=== PATIENT | male | born 1975 | race Caucasian/White ===

== ENCOUNTER 2020-11-24 19:39 | Emergency (ER) | payer MEDICAID, SELFPAY ==
[2020-11-24] VITALS (35 sets, daily range): BP systolic 119–140; BP diastolic 69–124; PULSE 49–85; RESP 11–25; TEMP 37.1–37.8; O2SAT 96–100
--- NOTE | 2020-11-24 19:45 | RT.EKG_ITS ---
APPROVED REPORT Exam: Resting ECG Patient Location: E HR:78 bpm ECG Measurements Heart Rate 78 AXIS MI 165 P 100 QRSd 87 QRS 118 QT 370 T 114 QTc 422 Conclusion Right and left arm electrode reversal, interpretation assumes no reversal Sinus rhythm...normal P axis, V-rate 60- 99 Probable lateral infarct, old...Q>35mS, abnormal ST-T, V5-6 I aVL Abnrm T, consider ischemia, anterolateral lds...T <-0.20mV, I aVL V2-V6 No lead reversal confirmed by nurse. Right [place] No STEMI
--- NOTE | 2020-11-24 19:50 | NUR.NOTE ---
Nursing Note: Patient reports daily CBD gummies, no other medications.
[2020-11-24 20:02] LABS: Absolute Basophil Count 0.03 10^3/uL (0.0-0.2); Absolute Eosinophil Count 0.12 10^3/uL (0.0-0.7); Absolute Lymphocyte Count 1.72 10^3/uL (1.2-3.4); Absolute Monocyte Count 0.43 10^3/uL (0.1-0.8); Absolute Neutrophil Count 3.46 10^3/uL (1.2-6.7); Basophils % 0.5; Eosinophils % 2.1; HCT 41.8 % (40.0-50.0); HGB 14.4 g/dL (13.5-17.5); Lymphocytes % 29.9; MCH 31.6 pg (27.0-33.0); MCHC 34.4 % (32.0-36.0); MCV 91.9 fL (80-95); MPV 9.5 fL (8.0-11.0); Monocytes % 7.5; Nucleated RBC 0 %; Platelet Count 247 10^3/uL (130-400); RBC 4.55 10^6/uL (4.36-5.78); RDW 11.1 % (11.8-14.1); RDW-SD 37.7 fL; WBC 5.76 10^3/uL (4.4-10.8)
[2020-11-24 20:26] LABS: ALT 30 U/L (16-63); AST 20 U/L (15-37); Albumin 4.4 g/dL (3.4-5.0); Alkaline Phosphatase 42 U/L (46-116); Anion Gap 7.2 mmol/L (3-11); BUN 18 mg/dL (7-18); Bilirubin, Total 0.4 mg/dL (0.2-1.0); CO2 28.8 mmol/L (21.0-32.0); CREATININE 0.97 mg/dL (0.70-1.30); Chloride 104 mmol/L (98-107); Glucose 85 mg/dL (74-106); Magnesium 1.9 mg/dL (1.8-2.4); Potassium 3.6 mmol/L (3.5-5.1); Sodium 140 mmol/L (136-145); TSH 1.86 uIU/mL (0.36-3.74); Total Protein 7.7 g/dL (6.4-8.2)
--- NOTE | 2020-11-24 20:36 | ED.GENADUL_ITS ---
Discharge Plan Disposition Patient Disposition: HOME Condition: Good Discharge Details Clinical Impression: Heart palpitations, Chest tightness Primary Care Provider: Rose Gongora ED Provider: Ian Long Home Meds and New Rx's Prescriptions: No Action No Known Home Meds RF: 0 Discharge Instructions Instructions: Chest Pain (ED), Heart Palpitations (ED) Additional Instructions: Work up tonight in ED looks ok. Holter monitor ordered. Will need follow up with PCP this coming week. Avoid stimulants like caffeine. Return to ED for syncope, persistent/prolonged palpitations, new/worse chest pain, shortness of breath. Referrals: Rose Gongora [Primary Care Provider] - Discharge Data Discharge Date/Time-TO BE ENTERED AT DEPARTURE: 11/25/20 00:15 Medical Decision Making <HELIO Benton - Last Filed: 11/25/20 08:06> 45-year-old gentleman presents with palpitations, heart racing, chest pressure- tightness intermittently for the past couple of weeks. He does admit to increased anxiety and stress. Denies cardiac or pulmonary disease. He is asymptomatic currently. Currently he is anxious but appears well, nontoxic. Heart rate on the geographic information scientist appears to be normal sinus rhythm, ventricular rate in the 80s. Respirations 16. Blood pressure 135/82. O2 sat 100% on room air. Initial temperature was documented to be 37.8, he has no infectious symptoms whatsoever, repeat temperature was 37.1. Differential includes but not excluded to PVC, A. fib, arrhythmia, atypical ACS, thyroid disease, PE, anxiety, anemia, electrolyte abnormality, etc. Will obtain IV access, perform cardiac work-up including D-dimer, and will discuss with respiratory setting up a 48- hour Holter monitor. I feel as though this is a long enough length of time given he reports symptoms every 1 or 2 days. Initial laboratory values reveal a white blood cell count of 5.76 hemoglobin 14.4 hematocrit 41.8 platelet count 247. Electrolytes are unremarkable. Creatinine 0.97 with a GFR greater than 60. Initial troponin was less than 0.05. TSH 1.86. Urine tox screen negative. D-dimer of 144. Upon reevaluation patient remains asymptomatic here in the ER. Respiratory is setting up the 48-hour Holter monitor. We discussed his work-up thus far and he is agreeable to awaiting his repeat troponin and EKG. Patient care signed out to Dr. Long at 1444. Working diagnosis currently with palpitations-arrhythmia. Patient does state that he watched a commercial regarding atrial fibrillation and is very concerned about that. I did explain to him that since he has been here there has been no signs of atrial fibrillation however the Holter monitor will likely give us more information. Plan is for repeat 3-hour troponin and EKG. Holter monitor already set up. If negative discharge home with outpatient primary care follow-up within the week, encouraged to return to the ER for new or worsening symptoms. Imaging Data Radiologic Study: Attestation: I personally reviewed and interpreted this imaging study as follows: Imaging: X-Ray My impression: Chest x-ray read by me in the ER as negative, awaiting official report from radiology. Lab Data Lab results reviewed: Yes I reviewed the patient's lab results. Lab results narrative: Laboratory Tests Range/Units 11/24/20 11/24/20 11/24/20 19:50 19:50 19:50 WBC (4.4-10.8) 10^3/uL 5.76 RBC (4.36-5.78) 10^6/uL 4.55 Hgb (13.5-17.5) g/dL 14.4 Hct (40.0-50.0) % 41.8 MCV (80-95) fL 91.9 MCH (27.0-33.0) pg 31.6 MCHC (32.0-36.0) % 34.4 RDW (11.8-14.1) % 11.1 L Plt Count (130-400) 10^3/uL 247 MPV (8.0-11.0) fL 9.5 Immature Gran % 0.0 Neutrophils % 60.0 Lymphocytes % 29.9 Monocytes % 7.5 Eosinophils % 2.1 Basophils % 0.5 Nucleated RBC % % 0 Absolute Neutrophils (1.2-6.7) 10^3/uL 3.46 Absolute Lymphocytes (1.2-3.4) 10^3/uL 1.72 Absolute Monocytes (0.1-0.8) 10^3/uL 0.43 Absolute Eosinophils (0.0-0.7) 10^3/uL 0.12 Absolute Basophils (0.0-0.2) 10^3/uL 0.03 D-Dimer (<500) ng/mlFEU 144 Sodium (136-145) mmol/L 140 Potassium (3.5-5.1) mmol/L 3.6 Chloride (98-107) mmol/L 104 Carbon Dioxide (21.0-32.0) mmol/L 28.8 Anion Gap (3-11) mmol/L 7.2 BUN (7-18) mg/dL 18 Creatinine (0.70-1.30) mg/dL 0.97 Estimated GFR/1.73 m2 (mL/min/1.73m2) >= 60.00 Glucose (74-106) mg/dL 85 Calcium (8.5-10.1) mg/dL 9.0 Magnesium (1.8-2.4) mg/dL 1.9 Total Bilirubin (0.2-1.0) mg/dL 0.4 AST (15-37) U/L 20 ALT (16-63) U/L 30 Alkaline Phosphatase (46-116) U/L 42 L Troponin I (<0.06) ng/mL < 0.05 Total Protein (6.4-8.2) g/dL 7.7 Albumin (3.4-5.0) g/dL 4.4 TSH (0.36-3.74) uIU/mL 1.86 Urine Opiates Screen (Negative) Urine Methadone Screen (Negative) Ur Barbiturates Screen (Negative) Ur Tricyclics Screen (Negative) Ur Amphetamines Screen (Negative) U Benzodiazepines Scrn (Negative) Urine Cocaine Screen (Negative) Ur THC Screen (Negative) Range/Units 11/24/ 20:35 WBC (4.4-10.8) 10^3/uL RBC (4.36-5.78) 10^6/uL Hgb (13.5-17.5) g/dL Hct (40.0-50.0) % MCV (80-95) fL MCH (27.0-33.0) pg MCHC (32.0-36.0) % RDW (11.8-14.1) % Plt Count (130-400) 10^3/uL MPV (8.0-11.0) fL Immature Gran % Neutrophils % Lymphocytes % Monocytes % Eosinophils % Basophils % Nucleated RBC % % Absolute Neutrophils (1.2-6.7) 10^3/uL Absolute Lymphocytes (1.2-3.4) 10^3/uL Absolute Monocytes (0.1-0.8) 10^3/uL Absolute Eosinophils (0.0-0.7) 10^3/uL Absolute Basophils (0.0-0.2) 10^3/uL D-Dimer (<500) ng/mlFEU Sodium (136-145) mmol/L Potassium (3.5-5.1) mmol/L Chloride (98-107) mmol/L Carbon Dioxide (21.0-32.0) mmol/L Anion Gap (3-11) mmol/L BUN (7-18) mg/dL Creatinine (0.70-1.30) mg/dL Estimated GFR/1.73 m2 (mL/min/1.73m2) Glucose (74-106) mg/dL Calcium (8.5-10.1) mg/dL Magnesium (1.8-2.4) mg/dL Total Bilirubin (0.2-1.0) mg/dL AST (15-37) U/L ALT (16-63) U/L Alkaline Phosphatase (46-116) U/L Troponin I (<0.06) ng/mL Total Protein (6.4-8.2) g/dL Albumin (3.4-5.0) g/dL TSH (0.36-3.74) uIU/mL Urine Opiates Screen (Negative) Negative Urine Methadone Screen (Negative) Negative Ur Barbiturates Screen (Negative) Negative Ur Tricyclics Screen (Negative) Negative Ur Amphetamines Screen (Negative) Negative U Benzodiazepines Scrn (Negative) Negative Urine Cocaine Screen (Negative) Negative Ur THC Screen (Negative) Negative ECG Data Attestation: I personally reviewed and interpreted this ECG (s) as follows: Interpretation: Please see official report by Dr. Long. Also please note that the machine read as possible reversal of the right and left arm electrode. I clarified with the RN who performed EKG and she verifies that it was done correctly. Sinus rhythm, ventricular rate of 78. No STEMI. <Ian Long MD - Last Filed: 11/24/20 23:52> Patient signed out to me pending repeat EKG and troponin. Had presented with intermittent palpitations and chest pressure but asymptomatic here. See HELIO Prado's note for presentation and work up. Holter being set up with respiratory. 1st EKG with right axis and question lead reversal but nurse confirms she double checked. Thought maybe arm leads weren't out far enough maybe due to placement related to patient's chest hair. Labs all look fine. Repeat EKG is normal and 2nd trop is negative. Home. Holter monitor ordered. Follow up with PCP next week. Return to ED for syncope, new/worse chest pain/tightness, prolonged/sustained palpitations, shortness of breath. Lab Data Lab results reviewed: Yes I reviewed the patient's lab results. ECG Data Attestation: I personally reviewed and interpreted this ECG (s) as follows: Interpretation: see EKG HPI <HELIO Benton - Last Filed: 11/25/20 08:06> General Mode of arrival: ambulatory . Date/Time Provider Initiated Documentation: 11/24/20 19:54 . Limitations to Documentation: no limitations . Information obtained by: patient . HPI Narrative: 45-year-old gentleman who denies significant past medical history and is presenting to the ER tonight for palpitations that are associated with chest pressure-tightness. He tells me that he brought up the symptoms to his primary care provider approximately 2 years ago and has had occasional similar episodes ever since. He states that he was told it was likely a benign arrhythmia. Over the past 2 weeks he reports that his symptoms have worsened, increased in frequency, at least 1 time every 2 days. He reports feeling his heart racing, being irregular and fast, and even stopping and restarting. Sometimes when he gets these symptoms he also feels lightheaded and/or dizzy. Not like the room is spinning. When he becomes symptomatic he states that his anxiety worsens which then in turn makes the symptoms worse. He admits that his stress and anxiety is higher than usual given the pandemic and his isolation. Symptoms today began around 4:00 when he was at rest and lasted for a couple of hours; however, now here in the ER he is asymptomatic. He denies recent illness or trauma. He denies headache, visual changes, neck pain, cough, shortness of breath, abdominal pain, nausea, vomiting, numbness, tingling, weakness. He reports that the chest pressure and/or tightness across his entire chest and not located in one small area. He admits to using marijuana daily as well as typically having 2 or 3 alcoholic drinks every single night. He denies any other drug use. He denies any known cardiac disease, pulmonary disease, thyroid disease, etc. Related Data Home Medications Medication Instructions Recorded Confirmed Unknown [No Known Home Meds] 11/24/20 11/24/20 Allergies Allergy/AdvReac Type Severity Reaction Status Date / Time ssris Allergy Psychosis Uncoded 11/24/20 19:44 General Stated Complaint: Palpitatns JAVIER: 3 Review of Systems <HELIO Benton - Last Filed: 11/25/20 08:06> Constitutional Constitutional: Denies fatigue, Denies fever(s), Denies headache(s) and Denies weakness Eyes Eyes: Denies change in vision ENT Ears, Nose, Mouth, and Throat: Denies headache(s) and Denies neck pain Cardiovascular Cardiovascular: Reports chest pain, Reports rapid heart rate, Reports irregular heart rhythm, Denies leg edema, Reports palpitations and Denies dyspnea Respiratory Respiratory: Denies cough and Denies dyspnea Gastrointestinal Gastrointestinal: Denies abdominal pain, Denies nausea and Denies vomiting Genitourinary Genitourinary: Denies dysuria Musculoskeletal Musculoskeletal: Denies back pain, Denies neck pain, Denies numbness and Denies tingling Integumentary/Breasts Skin/Breast: Denies rash Neurologic Neurologic: Denies headache(s), Denies numbness, Denies tingling and Denies weakness Psychiatric Psychiatric: Reports anxiety Endocrine Endocrine: Denies fatigue and Reports palpitations PFSH <HELIO Benton - Last Filed: 11/25/20 08:06> Social History Smoking/Tobacco Use Status: Never Smoking risk assessment performed?: Yes Alcohol Intake: current Alcohol Intake frequency: 3 or more drinks per day Alcohol type: beer and wine Substance use type: marijuana Do you feel safe at home: Yes Do you feel safe in your relationship?: Yes Exam <HELIO Benton - Last Filed: 11/25/20 08:06> Const General: cooperative, healthy appearing, comfortable, no acute distress and anxious Orientation: alert, awake and oriented x3 HENMT Head: normal to inspection, normocephalic and atraumatic Eyes General: appearance normal, both eyes and all related structures Conjunctivae: conjunctivae normal Sclera: sclerae normal Neck Neck: normal visual inspection, full ROM, no meningeal signs, trachea midline, supple and nontender Resp Effort & Inspection: normal respiratory effort and able to speak in complete sentences Auscultation: clear to auscultation bilaterally Cardio Rate: regular rate Rhythm: regular rhythm GI Palpation: soft and nontender Auscultation: normal bowel sounds Back/Spine/Pelvis Back: No back tenderness Skin General skin exam: no rashes or lesions noted Neuro General: patient alert, patient awake, patient oriented x3, moves all extremities and no focal motor deficits Cognition: normal cognition Speech: speech normal Gait: normal gait Motor: muscle tone normal throughout Sensory Exam: no sensory deficits noted Extrem General: normal to inspection, full ROM, capillary refill normal, no pedal edema and no calf tenderness Psych Appearance: grossly normal Mental Status: mental status grossly normal Speech and Movement: speech and movement normal Mood: anxious mood Affect: anxious affect Attitude: cooperative Thought Process: normal Thought Content: normal Insight: fair Judgment: fair Course <HELIO Benton - Last Filed: 11/25/20 08:06> Vital Signs Vital signs: Vital Signs Temperature 37.8 C H 11/24/20 19:42 Pulse 85 11/24/20 19:42 Respiratory Rate 16 11/24/20 19:42 Blood Pressure 135/82 11/24/20 19:42 Pulse Oximetry 100 11/24/20 19:42 Temperature 37.8 C H 11/24/20 19:42 Temperature Source Skin 11/24/20 19:42 Pulse 85 11/24/20 19:42 Respiratory Rate 16 11/24/20 19:42 Respiratory Effort Non-Labored 11/24/20 19:47 Blood Pressure 135/82 11/24/20 19:42 Blood Pressure Position Supine 11/24/20 19:42 Pulse Oximetry 100 11/24/20 19:42 Oxygen Delivery Method Room Air 11/24/20 19:42 Oxygen Flow Rate 0 11/24/20 19:42 Pain Level 0 11/24/20 19:42 Lab/Test Results Lab/Test Results: Laboratory Tests Range/Units 11/24/20 19:50 WBC (4.4-10.8) 10^3/uL 5.76 RBC (4.36-5.78) 10^6/uL 4.55 Hgb (13.5-17.5) g/dL 14.4 Hct (40.0-50.0) % 41.8 MCV (80-95) fL 91.9 MCH (27.0-33.0) pg 31.6 MCHC (32.0-36.0) % 34.4 RDW (11.8-14.1) % 11.1 L Plt Count (130-400) 10^3/uL 247 MPV (8.0-11.0) fL 9.5 Immature Gran % 0.0 Neutrophils % 60.0 Lymphocytes % 29.9 Monocytes % 7.5 Eosinophils % 2.1 Basophils % 0.5 Nucleated RBC % % 0 Absolute Neutrophils (1.2-6.7) 10^3/uL 3.46 Absolute Lymphocytes (1.2-3.4) 10^3/uL 1.72 Absolute Monocytes (0.1-0.8) 10^3/uL 0.43 Absolute Eosinophils (0.0-0.7) 10^3/uL 0.12 Absolute Basophils (0.0-0.2) 10^3/uL 0.03
[2020-11-24 20:39] LABS: Troponin I < 0.05 ng/mL (<0.06)
[2020-11-24 21:00] LABS: *AMPHETAMINES SCREEN URINE Negative (Negative); *BARBITURATES SCREEN URINE Negative (Negative); *BENZODIAZEPINES SCREEN URINE Negative (Negative); Cannabinoids THC Negative (Negative); Cocaine Screen,Urine Negative (Negative); METHADONE URINE SCREEN Negative (Negative); OPIATES URINE SCREEN Negative (Negative)
[2020-11-24 21:01] LABS: Tricyclic Antidepressants Negative (Negative)
[2020-11-24 21:06] LABS: D-Dimer 144 ng/mlFEU (<500)
--- NOTE | 2020-11-24 21:13 | DI.RAD_ITS ---
EXAM: XR CHEST 2V PA LATERAL CLINICAL HISTORY: Palpitations TECHNIQUE: 2D digital imaging was performed. COMPARISON: No exams were available for comparison FINDINGS: MEDIASTINUM: Normal. HEART: Normal. PULMONARY VASCULATURE: Normal. LUNGS: Mild biapical scarring, otherwise clear. PLEURAL SPACE: No pleural effusion or pneumothorax. BONE:Normal. IMPRESSION: No acute pulmonary findings. DATA REPOSITORY: RADIATION DOSE DELIVERED:
--- NOTE | 2020-11-24 21:57 | DI.VRAD_ITS ---
PROCEDURE INFORMATION: Exam: XR Chest, 2 Views Exam date and time: 11/24/2020 9:19 PM Age: 45 years old Clinical indication: Other: Palpitations TECHNIQUE: Imaging protocol: XR of the chest Views: 2 views. COMPARISON: No relevant prior studies available. FINDINGS: Lungs: No focal consolidation. Mild biapical thickening. Pleural space: No pleural effusion. No pneumothorax. Heart/Mediastinum: Unremarkable. No cardiomegaly. Bones/joints: Unremarkable. IMPRESSION: No acute cardiopulmonary disease. Dictated and Authenticated by: Zach Mazariegos MD. Ordering:JALEN Plata MD
--- NOTE | 2020-11-24 22:45 | RT.EKG_ITS ---
APPROVED REPORT Exam: Resting ECG Patient Location: E HR:51 bpm ECG Measurements Heart Rate 51 AXIS [place] 179 P 73 QRSd 93 QRS 63 QT 430 T 75 QTc 397 Conclusion Sinus bradycardia...rate< [address] [place] [address] segments. No STEMI Compared to prior EKG performed on 11/24/2020 at 19:47. [place] now normal.
[2020-11-24 23:27] LABS: Troponin I < 0.05 ng/mL (<0.06)
== END 2020-11-25 00:15 | disposition home or self-care (01) ==
PROVIDERS: Physician Assistant; Emergency Provider Emergency Medicine; PCP Family Medicine
DX: R00.2 Palpitations (principal); R07.89 Other chest pain
CPT/HCPCS: 80053; 80307; 93005; 99284; 71046; 83735; 84443; 84484; 85025; 85379; 93010; 93225

== ENCOUNTER 2020-11-24 20:45 | Outpatient (RCR) | payer MEDICAID, SELFPAY ==
--- NOTE | 2020-11-24 20:45 | HOLTER_ITS ---
APPROVED REPORT Exam Type: HOLTER MONITOR APPLICATION Patient Location: O Conclusion This was a 48-hour Holter monitor reportedly ordered for symptoms of palpitations The rhythm throughout was sinus average heart rate was 68 bpm. Minimum was 40 and maximum 146 There were very rare atrial and ventricular ectopic beats There was no atrial fibrillation, no pauses greater than 3 seconds, no high-grade AV block No patient symptoms were reported
== END 2020-11-30 23:59 | disposition home or self-care (01) ==
LOC: RT 20:45
PROVIDERS: PCP Family Medicine; Visit Provider Physician Assistant
DX: R00.2 Palpitations (principal)
CPT/HCPCS: 93225; 93226

== ENCOUNTER 2020-11-28 19:03 | Outpatient (REF) | payer MEDICAID, SELFPAY ==
[2020-11-30 04:00] LABS: COVID-19 RT-PCR UVMMC Result Negative (Negative)
== END 2020-11-28 19:23 ==
LOC: NCHCN 19:03
PROVIDERS: PCP Family Medicine; Visit Provider Family Medicine
DX: Z20.828 Contact with and (suspected) exposure to other viral communicable diseases (principal)
CPT/HCPCS: U0003

== ENCOUNTER 2020-12-05 16:34 | Emergency (ER) | payer MEDICAID, SELFPAY ==
[2020-12-05] VITALS (24 sets, daily range): BP systolic 92–142; BP diastolic 68–84; PULSE 51–83; RESP 12–25; TEMP 37.2; O2SAT 97–100
--- NOTE | 2020-12-05 16:30 | RT.EKG_ITS ---
APPROVED REPORT Exam: Resting ECG Patient Location: E HR:62 bpm ECG Measurements Heart Rate 62 AXIS [place] 167 P 73 QRSd 91 QRS 59 QT 402 T 70 QTc 409 Conclusion Sinus rhythm...normal P axis, V-rate 60- 99 I have reviewed and interpreted ECG and agree with software generated interpretation.
--- NOTE | 2020-12-05 17:00 | W.ED.GENAD ---
Discharge Plan Disposition Patient Disposition: HOME Condition: Stable Discharge Details Clinical Impression: Heart palpitations Primary Care Provider: Rose Gongora ED Provider: Jelly Dallas Home Meds and New Rx's Prescriptions: No Action No Known Home Meds RF: 0 Discharge Instructions Instructions: Heart Palpitations (ED) Additional Instructions: Please care for the surveillance monitor as discussed by respiratory therapy. This is mostly in place in the next 2 weeks. Please keep your upcoming appointment with your primary care. Please cut out the acidic based foods prior to bed. Please continue to track your symptoms including when they came on and what you had done prior. If you develop chest pain, shortness of breath or other new/worsening symptoms please seek care urgently once again. Referrals: Rose Gongora [Primary Care Provider] - Discharge Data Discharge Date/Time-TO BE ENTERED AT DEPARTURE: 12/05/20 19:12 Medical Decision Making Patient is a pleasant 45-year-old gentleman presenting today for recurrence of palpitations. He was seen here 11 days ago with the same. At that time, he reported palpitations at night. He states that he wore a Holter monitor for 2 days. He states that while having a Holter on he was completely asymptomatic. He states that he notices this more at night. States he notices it just when he is trying to go to sleep. He reports that he comes in today because he awoke last night with recurrence of symptoms. He states his palpitations lasted a longer period time and then he states his heart rate was slow, in the 40s. States that he felt a pause for 1 to 2 seconds which was very alarming to him. He states that when he was having the symptoms he also experienced unusual sensation in his hands and lightheadedness. Also describes shooting pain that went through his right great toe. Denies any chest pain. States that he did feel slightly short of breath with this. Denies any nausea or vomiting. No change in his bowel or bladder habits. States that he has been eating a large amount of canned goods which have been vinegar-based tomato based at night during onset of symptoms. Reports that he was taking his own pulse last night and noted it to be in the 40s. On exam, patient appears nontoxic. Normal cardiac exam at this time. No lower extremity edema, no calf tenderness. Patien does appear anxious. I reviewed the patient's chart, last time patient was here, his heart rate was in the 40s and 50s. I did try to reassure the patient that if he was at that level while awake and alert, likely he is in the 40s and he states the night. This would therefore require at least 1 second in between each beat which was his major concern today. His blood suspicion for ACS. His history and exam is not consistent with pulmonary embolism. Patient may have had a dysrhythmia. However, as noted previously, this also may be associated with low resting heart rate. Plan for repeat labs and EKG. As he had TSH and chest x-ray recently, I do not feel that these need to be repeated today. Labs reviewed. No leukocytosis. Stable H&H. No electrolyte abnormalities. Troponin is within normal limits. Patient has symptoms 12 hours ago, I do not feel that repeating a troponin is warranted at this point. Discussed these findings with the patient. We discussed the treatment options at length. He was asymptomatic when he was Holter monitor last time. I do feel that he would likely benefit from a longer period of monitoring. He denies I discussed inpatient versus outpatient monitoring as he seems quite concerned with this. However, after the reassuring exam today, he would prefer discharge home. Return precautions were given. I did advise close follow-up with primary care. He reports he is supposed to have further blood work this week. 14-day surveillance monitor was placed by respiratory therapy. All his questions and concerns were addressed and he is in agreement with this plan. HPI General Mode of arrival: ambulatory. Date/Time Provider Initiated Documentation: 12/05/20 16:54. Limitations to Documentation: no limitations. Information obtained by: patient and RN notes reviewed. History of Present Illness 45 year old M presents to the emergency department with the chief complaint of Palpitations, described as similar to prior episodes, with intensity rated at 1 (Denies any pain). and is localized to the chest. Patient reports no radiation. Patient started experiencing this hour(s) (Occurred last night) and it has been now resolved. No relieving factors improve symptom(s), Other factors that worsen symptoms (Laying supine) . Patient notes no other symptoms.. Patient did receive the following treatments prior to arrival, none Related Data Home Medications Medication Instructions Recorded Confirmed Unknown [No Known Home Meds] 11/24/20 12/05/20 Allergies Allergy/AdvReac Type Severity Reaction Status Date / Time ssris Allergy Psychosis Uncoded 12/05/20 17:07 General JAVIER: 3 Review of Systems Constitutional Constitutional: Reports as per HPI, Denies chills, Denies fever(s), Denies headache(s), Denies lethargy and Denies poor appetite Eyes Eyes: Denies change in vision ENT Ears, Nose, Mouth, and Throat: Denies dizziness and Denies headache(s) Cardiovascular Cardiovascular: Reports as per HPI, Denies chest pain, Denies chest pain at rest, Denies chest pain with activity, Denies diaphoresis, Denies syncope, Denies edema, Reports lightheadedness, Denies radiating jaw, neck or arm pain, Reports palpitations, Denies dyspnea, Denies dyspnea on exertion, Denies paroxysmal nocturnal dyspnea and Reports slow heart rate (at night when in bed) Respiratory Respiratory: Reports as per HPI, Denies chest congestion, Denies cough, Denies pain on inspiration, Denies pain with cough, Denies dyspnea, Denies dyspnea on exertion and Denies wheezing Gastrointestinal Gastrointestinal: Reports as per HPI, Denies abdominal pain, Denies diarrhea, Denies nausea and Denies vomiting Genitourinary Genitourinary: Denies system reviewed and no additional complaints, except as documented (denies change in urinary habits) Musculoskeletal Musculoskeletal: Reports as per HPI and Denies back pain Integumentary/Breasts Skin/Breast: Reports as per HPI and Denies rash Neurologic Neurologic: Reports as per HPI, Denies dizziness, Denies syncope and Denies headache(s) Endocrine Endocrine: Reports palpitations Allergic/Immunologic Allergic/Immunologic: Denies wheezing [facility] Social History Smoking/Tobacco Use Status: Never Smoking risk assessment performed?: Yes Alcohol Intake: current Alcohol Intake frequency: 3 or more drinks per day Alcohol type: beer and wine Drug use: Daily Substance use type: marijuana Do you feel safe at home: Yes Do you feel safe in your relationship?: Yes Exam Const General: cooperative, healthy appearing, comfortable, no acute distress, well developed and anxious Nutritional Appearance: average body habitus and well nourished Orientation: alert, awake and oriented x3 HENMT Head: normal to inspection Ears: hearing grossly normal bilaterally Mouth: moist mucous membranes Chest Chest: normal inspection of the chest, normal palpation of entire chest wall and no crepitus Resp Effort & Inspection: normal respiratory effort, able to speak in complete sentences and no respiratory distress Auscultation: clear to auscultation bilaterally, no rales, no rhonchi and no wheezes Cardio Rate: regular rate Rhythm: regular rhythm Heart Sounds: S1 normal and S2 normal GI Inspection: normal to inspection, no edema and non-distended Palpation: soft, no hepatosplenomegaly, not firm, no guarding, not rigid and nontender Auscultation: normal bowel sounds Skin General skin exam: no rashes or lesions noted Trauma: no lacerations or abrasions Neuro General: patient alert, patient awake and patient oriented x3 Cognition: normal cognition Speech: speech normal Gait: normal gait Extrem General: normal to inspection, capillary refill normal, no pedal edema, no calf tenderness and normal gait Psych Appearance: grossly normal and well kempt Mental Status: mental status grossly normal Speech and Movement: speech and movement normal
[2020-12-05 17:03] LABS: Abs Immature Grans 0.01 10^3/uL (0.0-0.06); Absolute Basophil Count 0.02 10^3/uL (0.0-0.2); Absolute Eosinophil Count 0.14 10^3/uL (0.0-0.7); Absolute Lymphocyte Count 1.45 10^3/uL (1.2-3.4); Absolute Monocyte Count 0.41 10^3/uL (0.1-0.8); Absolute Neutrophil Count 2.08 10^3/uL (1.2-6.7); Basophils % 0.5; Eosinophils % 3.4; HCT 41.5 % (40.0-50.0); HGB 14.1 g/dL (13.5-17.5); Immature Grans % 0.2; Lymphocytes % 35.3; MCH 31.5 pg (27.0-33.0); MCV 92.8 fL (80-95); Neutrophils % 50.6; Nucleated RBC 0 %; Platelet Count 236 10^3/uL (130-400); RBC 4.47 10^6/uL (4.36-5.78); RDW 11.2 % (11.8-14.1); RDW-SD 38.1 fL; WBC 4.11 10^3/uL (4.4-10.8)
[2020-12-05 17:24] LABS: ALT 28 U/L (16-63); AST 20 U/L (15-37); Albumin 4.1 g/dL (3.4-5.0); Alkaline Phosphatase 46 U/L (46-116); Anion Gap 3.8 mmol/L (3-11); BUN 8 mg/dL (7-18); Bilirubin, Total 0.4 mg/dL (0.2-1.0); CO2 32.2 mmol/L (21.0-32.0); CREATININE 0.87 mg/dL (0.70-1.30); Calcium 9.2 mg/dL (8.5-10.1); Chloride 104 mmol/L (98-107); Glucose 87 mg/dL (74-106); Potassium 3.8 mmol/L (3.5-5.1); Sodium 140 mmol/L (136-145); Total Protein 7.3 g/dL (6.4-8.2)
[2020-12-05 17:25] LABS: Troponin I < 0.05 ng/mL (<0.06)
--- NOTE | 2020-12-15 08:46 | ZIOP_ITS ---
Date of service: 12/15/20 Time of Service: 08:47 14 Day Rn Lactation Consultant Referring Provider:: Rose Zapata Indications:: Palpitations Note: This is a 14-day monitor ordered for palpitations. Recording lasted 7 days and 33 minutes. Rhythm throughout was sinus. Average heart rate was 63 bpm. Minimum was 40 and maximum 153 There were very rare atrial and ventricular ectopic beats There was no atrial fibrillation, no pauses greater than 3 seconds, no high- grade AV block Multiple patient symptoms were reported. These corresponded to sinus rhythm ranging from 55 to 75 bpm
== END 2020-12-05 19:12 | disposition home or self-care (01) ==
PROVIDERS: Emergency Provider Physician Assistant; PCP Family Medicine
DX: R00.2 Palpitations (principal); R42 Dizziness and giddiness; R06.02 Shortness of breath
CPT/HCPCS: 36415; 80053; 93005; 93246; 99284; 83735; 84484; 85025; 93010

== ENCOUNTER 2020-12-07 11:36 | Outpatient (REF) | payer MEDICAID, SELFPAY ==
[2020-12-07 13:50] LABS: Absolute Basophil Count 0.03 10^3/uL (0.0-0.2); Absolute Eosinophil Count 0.18 10^3/uL (0.0-0.7); Absolute Lymphocyte Count 1.47 10^3/uL (1.2-3.4); Absolute Monocyte Count 0.48 10^3/uL (0.1-0.8); Absolute Neutrophil Count 2.18 10^3/uL (1.2-6.7); Basophils % 0.7; Eosinophils % 4.1; HCT 44.6 % (40.0-50.0); Lymphocytes % 33.9; MCH 31.5 pg (27.0-33.0); MCHC 33.6 % (32.0-36.0); MCV 93.7 fL (80-95); MPV 10.3 fL (8.0-11.0); Monocytes % 11.1; Neutrophils % 50.2; Nucleated RBC 0 %; Platelet Count 259 10^3/uL (130-400); RBC 4.76 10^6/uL (4.36-5.78); RDW 11.7 % (11.8-14.1); RDW-SD 40.3 fL; WBC 4.34 10^3/uL (4.4-10.8)
[2020-12-07 14:45] LABS: ALT 30 U/L (16-63); AST 20 U/L (15-37); Albumin 4.2 g/dL (3.4-5.0); Alkaline Phosphatase 43 U/L (46-116); Anion Gap 5.3 mmol/L (3-11); BUN 16 mg/dL (7-18); Bilirubin, Total 0.4 mg/dL (0.2-1.0); CO2 31.7 mmol/L (21.0-32.0); CREATININE 0.89 mg/dL (0.70-1.30); Calcium 9.2 mg/dL (8.5-10.1); Calculated LDL 133 mg/dL (<100); Chloride 106 mmol/L (98-107); Cholesterol 239 mg/dL (<200); Glucose 100 mg/dL (74-106); HDL Cholesterol 95 mg/dL (40-60); Potassium 4.7 mmol/L (3.5-5.1); Sodium 143 mmol/L (136-145); TSH 2.69 uIU/mL (0.36-3.74); Total Protein 7.3 g/dL (6.4-8.2); Triglyceride 56 mg/dL (<150)
[2020-12-07 15:05] LABS: FREE T4 0.86 ng/dL (0.76-1.46)
== END 2020-12-07 11:56 ==
LOC: NCHCN 11:36
PROVIDERS: PCP Family Medicine; Visit Provider Family Medicine
DX: I49.9 Cardiac arrhythmia, unspecified (principal)
CPT/HCPCS: 80053; 80061; 84439; 84443; 85025

== ENCOUNTER 2020-12-19 19:24 | Emergency (ER) | payer MEDICAID, SELFPAY ==
[2020-12-19 19:28] VITALS: BP 143/85; PULSE 73; RESP 16; TEMP 37.2; O2SAT 97
--- NOTE | 2020-12-19 20:04 | W.ED.GENAD ---
Discharge Plan Disposition Patient Disposition: HOME Condition: Good Discharge Details Clinical Impression: Pain in right testicle, Pain in penis Primary Care Provider: Rose Gongora ED Provider: Jelly Dallas Home Meds and New Rx's Prescriptions: No Action No Known Home Meds RF: 0 Discharge Instructions Instructions: Testicle Pain (ED) Additional Instructions: As we discussed, your exam is most consistent with contusion. Please continue to ice the area. Please encourage scrotal elevation. If you develop any swelling, increased pain, difficulty with urination, difficulty with erection or other new/worsening symptoms please seek care urgently once again. Otherwise, please follow-up with your primary care in 1 week for reevaluation. You may use Tylenol and/or ibuprofen as needed for discomfort. Referrals: Rose Gongora [Primary Care Provider] - Medical Decision Making Patient is a 45-year-old male presenting today with chief complaint of testicular and penile pain. Patient reports a few hours prior to arrival he was working on his physical therapy. He was using a physical therapy exams that have been bolted to the wall. While performing his exercises, he detached in the wall and snapped him in his genitals. He states that he quickly noted swelling and was concerned that his penis was deviated to left. He contacted urgent care with plan to be evaluated there. They were concerned about potential penile fracture and advised to come to the ED for evaluation. Patient reports that she has been icing the area and notes that the swelling has gone down and his penis is no longer bent. He states that he also had right testicular discomfort which is also been subsiding. This pain did radiate up into his abdomen. No nausea or vomiting. Denies other injury the time of the incident. Patient has urinated since being here and denies any pain with urination. On exam, patient appears very anxious. He seems quite angry about being here and is swearing and upset throughout the course of the visit. Exam of his genitals are reassuring. I do not note any abnormality of his penis, no swelling or ecchymosis. Normal testicular lie. No fracture of penis or deformity of his testicle is palpated. No pain with palpation. Patient did not have any gross blood in his urine. Patient and I discussed treatment options. I do not see any evidence to suggest a penile fracture. He did not have an erection at this time the injury took place. Do not see any evidence to suggest severe testicular injury. Again, his pain had subsided the time of my exam. We did discuss imaging but I do not feel that this is warranted at this time. I encouraged elevation of the scrotum. Advised he may continue icing. He has been seen by urology historically for an enlarged prostate. I did offer referral once again to urology as it sounds that he was lost to prostate. Patient declines this referral. Encouraged follow-up with primary care. We did discuss return precautions including swelling, difficulty getting erection, difficulty with urination or increased pain. All of his questions and concerns were addressed and he is in agreement this plan. HPI General Mode of arrival: ambulatory. Date/Time Provider Initiated Documentation: 12/19/20 20:03. Limitations to Documentation: no limitations. Information obtained by: patient, RN/MD (contacted by [facility] from urgent care prior to arrival) and RN notes reviewed. History of Present Illness 45 year old M presents to the emergency department with the chief complaint of penile and testicular pain, described as mild (reports pain is improved at this time), Quality is described as aching, and is localized to the genitals. Patient abdomen (had radiated into the right side of his abdomen). Patient started experiencing this hour(s) (2) and it has been now resolved. Cold therapy improves symptom(s), and Rest improves symptom(s), No exacerbating factors reported . Patient notes no other symptoms.. Patient did receive the following treatments prior to arrival, cold therapy Related Data Home Medications Medication Instructions Recorded Confirmed Unknown [No Known Home Meds] 11/24/20 12/19/20 Allergies Allergy/AdvReac Type Severity Reaction Status Date / Time ssris Allergy Psychosis Uncoded 12/19/20 19:31 General Stated Complaint: Male Reproductive Problem JAVIER: 3 Review of Systems Constitutional Constitutional: Reports as per HPI, Denies chills, Denies fatigue, Denies fever(s) and Denies headache(s) ENT Ears, Nose, Mouth, and Throat: Denies headache(s) Cardiovascular Cardiovascular: Reports as per HPI, Denies chest pain and Denies dyspnea Respiratory Respiratory: Reports as per HPI, Denies cough and Denies dyspnea Gastrointestinal Gastrointestinal: Reports as per HPI Genitourinary Genitourinary: Reports as per HPI Musculoskeletal Musculoskeletal: Reports as per HPI and Denies back pain Integumentary/Breasts Skin/Breast: Reports as per HPI and Denies rash Neurologic Neurologic: Reports as per HPI and Denies headache(s) Endocrine Endocrine: Denies fatigue [facility] Social History Smoking/Tobacco Use Status: Never Smoking risk assessment performed?: Yes Alcohol Intake: current Alcohol Intake frequency: 3 or more drinks per day Alcohol type: beer and wine Drug use: Daily Substance use type: marijuana Current gender identity: male Do you feel safe at home: Yes Do you feel safe in your relationship?: Yes Exam Const General: cooperative, healthy appearing, comfortable, no acute distress, well developed and anxious Nutritional Appearance: average body habitus and well nourished Orientation: alert and awake HENMT Head: normal to inspection Mouth: moist mucous membranes Resp Effort & Inspection: normal respiratory effort and able to speak in complete sentences Cardio Rate: regular rate Rhythm: regular rhythm Male General Exam: Yes normal external exam, No ecchymosis, No edema, No erythema, No hernia, No inguinal lymphadenopathy, No lacerations, No lesions and No tenderness Penis: normal penis, no ecchymosis, not erythematous, no masses and no swelling Meatus: meatus normal and no meatla discharge Scrotum: scrotum normal, cremasteric reflex present, no ecchymosis, not edematous, not erythematous, no inguinal hernias, no masses and no scrotal swelling Testes: normal, testicular lie normal, no epidiymal tenderness, no masses and no testicular mass Back/Spine/Pelvis Back: no CVA tenderness Skin General skin exam: no rashes or lesions noted Trauma: no lacerations or abrasions Neuro General: patient alert and patient awake Cognition: normal cognition Speech: speech normal Gait: normal gait Psych Appearance: grossly normal and well kempt Mental Status: mental status grossly normal Speech and Movement: speech and movement normal Course Vital Signs Vital signs: Vital Signs Temperature 37.2 C 12/19/20 19:28 Pulse 73 12/19/20 19:28 Respiratory Rate 16 12/19/20 19:28 Blood Pressure 143/85 H 12/19/20 19:28 Pulse Oximetry 97 12/19/20 19:28 Temperature 37.2 C 12/19/20 19:28 Temperature Source Skin 12/19/20 19:28 Pulse 73 12/19/20 19:28 Respiratory Rate 16 12/19/20 19:28 Respiratory Effort Non-Labored 12/19/20 19:32 Blood Pressure 143/85 H 12/19/20 19:28 Blood Pressure Position Sitting 12/19/20 19:28 Pulse Oximetry 97 12/19/20 19:28 Oxygen Delivery Method Room Air 12/19/20 19:28 Oxygen Flow Rate 0 12/19/20 19:28 Pain Level 5 12/19/20 19:28
--- NOTE | 2020-12-19 20:54 | NUR.NOTE ---
Nursing Note: Patient refused nurse exam--see provider notes for detailed exam
== END 2020-12-19 20:40 | disposition home or self-care (01) ==
LOC: ER 20:40
PROVIDERS: Emergency Provider Physician Assistant; PCP Family Medicine
DX: N50.811 Right testicular pain (principal); N48.89 Other specified disorders of penis
CPT/HCPCS: 99282; 99283

== ENCOUNTER 2021-11-08 09:47 | Outpatient (REF) | payer MEDICAID, SELFPAY ==
[2021-11-09 11:55] LABS: Lyme Ab w Rflx to Lyme Confirm Negative (Negative)
[2021-11-12 18:48] LABS: Anaplasma phagocytophilum Negative (Negative); B. miyamotoi PCR Negative (Negative); Babesia divergens/MO-1 Negative (Negative); Babesia duncani Negative (Negative); Babesia microti Negative (Negative); Ehrlichia chaffeensis Negative (Negative); Ehrlichia ewingii/canis Negative (Negative); Ehrlichia muris eauclairensis Negative (Negative)
== END 2021-11-08 09:48 | disposition home or self-care (01) ==
LOC: NCHCN 09:47
PROVIDERS: PCP Family Medicine; Visit Provider Family Medicine
DX: M25.59 Pain in other specified joint (principal); G89.29 Other chronic pain
CPT/HCPCS: 87798; 84443; 86618

== ENCOUNTER 2023-01-29 16:45 | Outpatient (REF) | payer MEDICAID, SELFPAY ==
[2023-01-31 10:00] LABS: Hepatitis C Ab w Rflx HCV PCR Negative (Negative)
[2023-01-31 10:03] LABS: HIV-1/2 Ag & Ab Screen Negative (Negative)
[2023-01-31 10:29] LABS: Syphilis Serology (RPR) Negative (Negative)
== END 2023-01-29 16:46 | disposition home or self-care (01) ==
LOC: NCHCN 16:45
PROVIDERS: PCP Family Medicine; Visit Provider Family Medicine
DX: Z91.89 Other specified personal risk factors, not elsewhere classified (principal); Z11.4 Encounter for screening for human immunodeficiency virus [HIV]; Z11.3 Encounter for screening for infections with a predominantly sexual mode of transmission; Z11.59 Encounter for screening for other viral diseases
CPT/HCPCS: 86803; 87389; 86592

== ENCOUNTER 2023-04-23 11:23 | Outpatient (REF) | payer MEDICAID, SELFPAY ==
[2023-04-25 17:57] LABS: Lyme Ab w Rflx to Lyme Confirm Negative (Negative)
[2023-04-27 19:36] LABS: Anaplasma phagocytophilum Negative (Negative); B. miyamotoi PCR Negative (Negative); Babesia divergens/MO-1 Negative (Negative); Babesia duncani Negative (Negative); Babesia microti Negative (Negative); Ehrlichia chaffeensis Negative (Negative); Ehrlichia ewingii/canis Negative (Negative); Ehrlichia muris eauclairensis Negative (Negative)
== END 2023-04-23 11:24 | disposition home or self-care (01) ==
LOC: NCHCN 11:23
PROVIDERS: PCP Family Medicine; Visit Provider Family Medicine
DX: M25.59 Pain in other specified joint (principal); Z11.8 Encounter for screening for other infectious and parasitic diseases
CPT/HCPCS: 87798; 86618

== ENCOUNTER 2023-05-23 15:14 | Outpatient (REF) | payer MEDICAID, SELFPAY | END 2023-05-23 15:15 | disposition home or self-care (01) | LOC: NCHCN 15:14 | PROVIDERS: PCP Family Medicine; Visit Provider Family Medicine | DX: Z11.6 Encounter for screening for other protozoal diseases and helminthiases (principal) | CPT/HCPCS: 87177 ==

== ENCOUNTER 2024-04-28 15:15 | Outpatient (REF) | payer MEDICAID, SELFPAY ==
[2024-04-28 21:56] LABS: C-Reactive Protein < 0.50 mg/dL (<or=0.5)
[2024-05-03 13:13] LABS: Anaplasma phagocytophilum Negative (Negative); B. miyamotoi PCR Negative (Negative); Babesia divergens/MO-1 Negative (Negative); Babesia duncani Negative (Negative); Babesia microti Negative (Negative); Ehrlichia chaffeensis Negative (Negative); Ehrlichia ewingii/canis Negative (Negative); Ehrlichia muris eauclairensis Negative (Negative)
== END 2024-04-28 15:16 | disposition home or self-care (01) ==
LOC: NCHCN 15:15
PROVIDERS: PCP Family Medicine; Visit Provider Family Medicine
DX: M54.50 Low back pain, unspecified (principal)
CPT/HCPCS: 87798; 86140

== ENCOUNTER 2025-02-14 15:10 | Outpatient (REF) | payer MEDICAID, SELFPAY ==
[2025-02-16 11:15] LABS: Measles IgG Antibody Positive (See Note)
== END 2025-02-14 15:11 | disposition home or self-care (01) ==
LOC: NCHCN 15:10
PROVIDERS: PCP Family Medicine; Visit Provider Family Medicine
DX: Z11.59 Encounter for screening for other viral diseases (principal)
CPT/HCPCS: 86765

== ENCOUNTER 2025-05-12 06:00 | Emergency (ER) | payer MEDICAID, SELFPAY ==
--- NOTE | 2025-05-12 08:32 | NUR.NOTE ---
Animal bite report faxed to [facility] Clerk. Spoke with health officer Julian Orozco and he is aware of the report. Nursing Note:
== END 2025-05-12 07:18 | disposition home or self-care (01) ==
LOC: ER 07:16
PROVIDERS: Emergency Provider Student in an Organized Health Care Education/Training Program; PCP Family Medicine
DX: S60.512A Abrasion of left hand, initial encounter (principal); Z23 Encounter for immunization; W55.01XA Bitten by cat, initial encounter; Y93.89 Activity, other specified; Y92.017 Garden or yard in single-family (private) house as the place of occurrence of the external cause
CPT/HCPCS: 90471; 99283